=== PATIENT | female | born 1975 ===

== ENCOUNTER 2017-07-22 03:05 | Emergency (ER) | payer OTHER, SELFPAY ==
[2017-07-22 03:17] VITALS: RESP 16; O2SAT 98
--- NOTE | 2017-07-22 03:27 | ED PDOC ---
HPI: General Adult Time Seen by Provider: 07/22/17 03:19 Chief Complaint (Nursing): Fever Chief Complaint (Provider): fever History Per: Patient Additional Complaint(s): 41-year-old female presents to emergency department complaining of fever 3 days associated with headache, sore throat, bilateral ear pain and overall body aches. Patient has also has had chest pain since the fever started with no cough or shortness of breath. Patient has been taking Advil and TheraFlu but still does not feel well. Patient has had mild upper abd pain with nausea but no vomiting or diarrhea. Patient denies recent travel or known sick contacts. Patient states 2 days ago Tmax was 104. Patient also states she was treated recently for H pylori with 2 week course of antibiotics. Past Medical History Reviewed: Historical Data Vital Signs: Last Vital Signs Temp 97.6 F 07/22/17 06:50 Pulse 67 07/22/17 06:50 Resp 16 07/22/17 06:50 BP 113/67 07/22/17 06:50 Pulse Ox 98 07/22/17 06:50 - Medical History PMH: Anemia Other PMH: H pylori - Surgical History Surgical History: (x 2) - Family History Family History: States: No Known Family Hx - Living Arrangements Living Arrangements: With Family - Social History Current smoker - smoking cessation education provided: No Alcohol: None Drugs: Denies - Home Medications Home Medications: Ambulatory Orders Medication Instructions Recorded traMADol [Ultram] 50 mg PO Q6H PRN #15 tab 07/22/16 Albuterol HFA [Ventolin HFA 90 1 puff IH Q6 PRN #1 inhaler 07/22/17 mcg/actuation (8 g)] Levofloxacin [Levaquin] 500 mg PO DAILY #7 tablet 07/22/17 - Allergies Allergies/Adverse Reactions: Allergies Allergy/AdvReac Type Severity Reaction Status Date / Time FISH Allergy VOMITING Verified 07/21/16 22:06 Review of Systems ROS Statement: Except As Marked, All Systems Reviewed And Found Negative Constitutional: Positive for: Fever, Chills, Other (body aches) ENT: Positive for: Throat Pain Cardiovascular: Positive for: Chest Pain Respiratory: Negative for: Cough Gastrointestinal: Negative for: Nausea, Vomiting Genitourinary Female: Negative for: Dysuria Neurological: Positive for: Headache. Negative for: Dizziness Physical Exam - Reviewed Nursing Documentation Reviewed: Yes Vital Signs Reviewed: Yes - Physical Exam Appears: Positive for: Well, Non-toxic, No Acute Distress Skin: Negative for: Rash Eye Exam: Positive for: Normal appearance ENT: Positive for: TM Is/Are (normal bilaterally), Pharyngeal Erythema. Negative for: Nasal Congestion Neck: Positive for: Normal, Painless ROM Cardiovascular/Chest: Positive for: Regular Rate, Rhythm Respiratory: Positive for: Normal Breath Sounds. Negative for: Wheezing, Respiratory Distress Gastrointestinal/Abdominal: Positive for: Soft. Negative for: Tenderness, Distended, Guarding, Rebound Extremity: Positive for: Normal ROM Neurologic/Psych: Positive for: Alert, Oriented - Laboratory Results Result Diagrams: 07/22/17 04:15 07/22/17 04:15 Urine POC: Negative - ECG Interpretation Of ECG: NSR 79 bpm, no acute finding, reviewed by PA and ED attending O2 Sat by Pulse Oximetry: 98 Pulse Ox Interpretation: Normal - Other Rad CXR X-Ray: Viewed By Me, Read By Radiologist X-Ray Interpretation: Vrad read: probably RML PNA CT chest and abdomen with IV contrast X-Ray: Read By Radiologist X-Ray Interpretation: see below Medical Decision Making Medical Decision Makin41 year old with fever for the past 3 days. Patient is afebrile upon arrival. Plan: CBC Blood cultures CMP Lipase Trop Lactate UA Urine culture Rapid strep Flu swab Monospot IVF Patient states she feels slightly better after meds and IVF given. Patient aware of pneumonia finding on CXR. Upon reexamination patient has increasing epigastric and upper abdominal discomfort in the setting of elevated LFTs. Case was discussed with Dr. Quiros, CT chest and abdomen with IV contrast ordered. CT abdomen: FINDINGS: Liver: Unremarkable. No mass. Gallbladder and bile ducts : No calcified stones. No ductal dilation. Pancreas: No ductal dilation. No mass. Spleen: No splenomegaly. Adrenals: No mass. Kidneys and ureters: No mass. No hydronephrosis. Stomach and bowel: Fluid/loose stool within colon. No definite mural thickening. No obstruction. Appendix: No findings to suggest acute appendicitis. Intraperitoneal space: No significant fluid collection. No free air. Bones/joints: No acute fracture. Soft tissues: Unremarkable. Vasculature: Unremarkable. No aneurysm. Lymph nodes: No pathologically enlarged lymph nodes. IMPRESSION: 1. Fluid/loose stool within bowel may suggest diarrhea illness CT chest: No relevant prior studies available. FINDINGS: Lungs: Minimal atelectasis. Moderate patchy and confluent consolidation with air bronchograms within RIGHT middle lobe. Minimal patchy airspace disease within RIGHT lower lobe. Pleural space: No pneumothorax. No significant effusion. Heart: No cardiomegaly. No significant pericardial effusion. Bones/joints: No acute fracture. Soft tissues: Unremarkable. Vasculature: Unremarkable. No aneurysm. Lymph nodes: No pathologically enlarged lymph nodes. IMPRESSION: 1. Probable pneumonia. Followup to resolution to exclude underlying pathology. Patient aware of CT results, all questions answered. Patient advised to follow up with clinic for repeat LFT's in 2 weeks. Rx levaquin given. Advised tylenol and motrin alternating for fever and body aches, rest and fluids. Patient instructed to followup with clinic in 1-2 days and she is aware she can RTED at any time if acutely worse. Disposition - Clinical Impression Clinical Impression: Pneumonia, Elevated liver enzymes - Patient ED Disposition Is Patient to be Admitted: No Counseled Patient/Family Regarding: Studies Performed, Diagnosis, Need For Followup, Rx Given - Disposition Referrals: [facility] [Outside] Disposition: Routine/Home Disposition Time: 05:54 Condition: STABLE Additional Instructions: Alternate tylenol every 4 hrs and motrin every 6 hrs for fever and body aches. Drink plenty of fluids and get plenty of rest. Take rx meds as directed. Follow up with clinic in 1-2 days. Have liver function tests repeated in 2 weeks. Prescriptions: Albuterol HFA [Ventolin HFA 90 mcg/actuation (8 g)] 1 puff IH Q6 PRN #1 inhaler PRN Reason: Cough Levofloxacin [Levaquin] 500 mg PO DAILY #7 tablet Instructions: Community Acquired Pneumonia (ED) Forms: [employer] (Pashto), [employer] (Danish) Print Language: GIBRALTARIAN Results - Lab Results Lab Results: 07/22/17 07/22/17 07/22/17 05:30 04:15 04:15 WBC RBC Hgb Hct MCV MCH MCHC RDW Plt Count MPV Neut % (Auto) Lymph % (Auto) [place] % (Auto) Eos % (Auto) Baso % (Auto) Neut # Lymph # [place] # Eos # Baso # Sodium Potassium Chloride Carbon Dioxide Anion Gap BUN Creatinine Est GFR ( Amer) Est GFR (Non-Af Amer) Random Glucose Lactic Acid Calcium Total Bilirubin AST ALT Alkaline Phosphatase Troponin I Total Protein Albumin Globulin Albumin/Globulin Ratio Lipase Urine Color Colorless Urine Clarity Cloudy Urine pH 6.0 Ur Specific Weaver < 1.005 Urine Protein Negative Urine Glucose (UA) Neg Urine Ketones Negative Urine Blood Negative Urine Nitrate Negative Urine Bilirubin Negative Urine Urobilinogen 0.2-1.0 Ur Leukocyte Esterase Neg Urine RBC (Auto) 2 Urine Microscopic WBC 1 Ur Squamous Epith Cells 1 Urine Bacteria Occ H Hyaline Casts 0-2 Infectious [place] Assay Negative Influenza Typ A,B (EIA) Grp A Beta Strep Ag Negative 07/22/17 07/22/17 07/22/17 04:15 04:15 04:15 WBC RBC Hgb Hct MCV MCH MCHC RDW Plt Count MPV Neut % (Auto) Lymph % (Auto) [place] % (Auto) Eos % (Auto) Baso % (Auto) Neut # Lymph # [place] # Eos # Baso # Sodium 141 Potassium 4.3 Chloride 111 H Carbon Dioxide 20 L Anion Gap 14 BUN 10 Creatinine 0.5 L Est GFR ( Amer) > 60 Est GFR (Non-Af Amer) > 60 Random Glucose 90 Lactic Acid 0.5 L Calcium 8.0 L Total Bilirubin 0.2 AST 281 H ALT 342 H D Alkaline Phosphatase 256 H Troponin I < 0.0120 Total Protein 7.1 Albumin 3.8 Globulin 3.2 Albumin/Globulin Ratio 1.2 Lipase 102 Urine Color Urine Clarity Urine pH Ur Specific Weaver Urine Protein Urine Glucose (UA) Urine Ketones Urine Blood Urine Nitrate Urine Bilirubin Urine Urobilinogen Ur Leukocyte Esterase Urine RBC (Auto) Urine Microscopic WBC Ur Squamous Epith Cells Urine Bacteria Hyaline Casts Infectious [place] Assay Influenza Typ A,B (EIA) Negative for flu a/b Grp A Beta Strep Ag 07/22/17 04:15 WBC 5.8 RBC 3.73 L Hgb 9.6 L Hct 29.1 L MCV 78.0 L MCH 25.8 L MCHC 33.1 RDW 16.1 H Plt Count 138 MPV 9.0 Neut % (Auto) 60.7 Lymph % (Auto) 25.5 [place] % (Auto) 13.2 H Eos % (Auto) 0.2 Baso % (Auto) 0.4 Neut # 3.5 Lymph # 1.5 [place] # 0.8 Eos # 0.0 Baso # 0.0 Sodium Potassium Chloride Carbon Dioxide Anion Gap BUN Creatinine Est GFR ( Amer) Est GFR (Non-Af Amer) Random Glucose Lactic Acid Calcium Total Bilirubin AST ALT Alkaline Phosphatase Troponin I Total Protein Albumin Globulin Albumin/Globulin Ratio Lipase Urine Color Urine Clarity Urine pH Ur Specific Weaver Urine Protein Urine Glucose (UA) Urine Ketones Urine Blood Urine Nitrate Urine Bilirubin Urine Urobilinogen Ur Leukocyte Esterase Urine RBC (Auto) Urine Microscopic WBC Ur Squamous Epith Cells Urine Bacteria Hyaline Casts Infectious [place] Assay Influenza Typ A,B (EIA) Grp A Beta Strep Ag
[2017-07-22] MEDS ORDERED: Sodium Chloride 0.9% 1,000 ML IV STA ×2 (03:28→05:04)
[2017-07-22 04:23] LABS: BASO % 0.4 % (0.0-2.0); EOS % 0.2 % (0.0-4.0); HEMATOCRIT 29.1 % (34.0-47.0); LYMPH # 1.5 K/uL (1.0-4.3); LYMPH % 25.5 % (20.0-40.0); MEAN CORPUSCULAR HEMOGLOBIN 25.8 pg (27.0-31.0); MEAN CORPUSCULAR HGB CONC 33.1 g/dL (33.0-37.0); MONO # 0.8 K/uL (0.0-0.8); MONO % 13.2 % (0.0-10.0); NEUT # 3.5 K/uL (1.8-7.0); NEUT % 60.7 % (50.0-75.0); RED CELL DISTRIBUTION WIDTH 16.1 % (11.5-14.5); WHITE BLOOD COUNT 5.8 K/uL (4.8-10.8)
[2017-07-22 04:26] LABS: RBC URINE 2 /hpf (0-3); URINE BACTERIA OCC (<OCC); URINE BILIRUBIN NEGATIVE (NEGATIVE); URINE BLOOD NEGATIVE (NEGATIVE); URINE COLOR COLORLESS (YELLOW); URINE GLUCOSE (UA) NEG (Normal); URINE KETONE NEGATIVE (NEGATIVE); URINE LEUKOCYTE ESTERASE NEG Leu/uL (Negative); URINE PROTEIN NEGATIVE (NEGATIVE); URINE UROBILINOGEN 0.2-1.0 mg/dL (0.2-1.0); WBC URINE 1 /hpf (0-5)
--- NOTE | 2017-07-22 04:27 | RAD ---
EXAM: XR Chest, 2 Views CLINICAL HISTORY: 41 years old, female; Signs and symptoms; Fever TECHNIQUE: Frontal and lateral views of the chest. COMPARISON: CR - CHEST PA 02/18/2012 7:16:01 AM FINDINGS: Lungs: Patchy opacity RIGHT middle lobe. Pleural space: No pleural effusion. No pneumothorax. Heart: No cardiomegaly. Mediastinum: Unremarkable. Bones/joints: No acute fracture. IMPRESSION: 1. Probable RML pneumonia. Followup to resolution to exclude underlying pathology.
[2017-07-22 04:38] LABS: ALB/GLOB RATIO 1.2 (1.0-2.1); ALKALINE PHOSPHATASE 256 U/L (38-126); ALT/SGPT 342 U/L (9-52); AST/SGOT 281 U/L (14-36); BILIRUBIN,TOTAL 0.2 mg/dl (0.2-1.3); BLOOD UREA NITROGEN 10 mg/dl (7-17); CARBON DIOXIDE 20 mmol/L (22-30); CHLORIDE 111 mmol/L (98-107); GFR AFRICAN-AMERICAN > 60; GLUCOSE,RANDOM 90 mg/dL (65-105); LIPASE 102 U/L (23-300); POTASSIUM 4.3 MMOL/L (3.6-5.0); SODIUM 141 mmol/l (132-148); TOTAL PROTEIN 7.1 G/DL (6.3-8.2)
[2017-07-22] MEDS ORDERED: cefTRIAXone 2 GM in Sodium Chloride 0.9% 100 ML IVPB STA (04:58)
[2017-07-22] MEDS ORDERED: Sodium Chloride 0.9% 50 ML IV ONE (05:12)
[2017-07-22] MEDS ORDERED: Iohexol 300 100 ML IJ ONE (05:12)
--- NOTE | 2017-07-22 05:49 | CT ---
EXAM: CT Chest With Intravenous Contrast CLINICAL HISTORY: 41 years old, female; Abnormal findings; Abnormal radiologic finding of the abdomen; Radiologic exam and body structure: Chest; Abnormal radiologic exam of lung or chest; Prior surgery; Surgery date: 6+ months; Surgery type: ; Additional info: Assess for cholecystitis, pneumonia on cxr TECHNIQUE: Axial computed tomography images of the chest with intravenous contrast. All CT scans at this facility use one or more dose reduction techniques, viz.: automated exposure control; ma/kV adjustment per patient size (including targeted exams where dose is matched to indication; i.e. head); or iterative reconstruction technique. Coronal and sagittal reformatted images were created and reviewed. CONTRAST: 90 mL of [id number] administered intravenously. COMPARISON: No relevant prior studies available. FINDINGS: Lungs: Minimal atelectasis. Moderate patchy and confluent consolidation with air bronchograms within RIGHT middle lobe. Minimal patchy airspace disease within RIGHT lower lobe. Pleural space: No pneumothorax. No significant effusion. Heart: No cardiomegaly. No significant pericardial effusion. Bones/joints: No acute fracture. Soft tissues: Unremarkable. Vasculature: Unremarkable. No aneurysm. Lymph nodes: No pathologically enlarged lymph nodes. IMPRESSION: 1. Probable pneumonia. Followup to resolution to exclude underlying pathology. EXAM: CT Abdomen With Intravenous Contrast CLINICAL HISTORY: 41 years old, female; Abnormal findings; Abnormal radiologic finding of the abdomen; Radiologic exam and body structure: Chest; Abnormal radiologic exam of lung or chest; Prior surgery; Surgery date: 6+ months; Surgery type: ; Additional info: Assess for cholecystitis, pneumonia on cxr TECHNIQUE: Axial computed tomography images of the abdomen with intravenous contrast. All CT scans at this facility use one or more dose reduction techniques, viz.: automated exposure control; ma/kV adjustment per patient size (including targeted exams where dose is matched to indication; i.e. head); or iterative reconstruction technique. Coronal and sagittal reformatted images were created and reviewed. CONTRAST: 90 mL of administered intravenously. COMPARISON: US - ABDOMEN COMPLETE 11/06/2016 8:59:41 AM FINDINGS: Liver: Unremarkable. No mass. Gallbladder and bile ducts: No calcified stones. No ductal dilation. Pancreas: No ductal dilation. No mass. Spleen: No splenomegaly. Adrenals: No mass. Kidneys and ureters: No mass. No hydronephrosis. Stomach and bowel: Fluid/loose stool within colon. No definite mural thickening. No obstruction. Appendix: No findings to suggest acute appendicitis. Intraperitoneal space: No significant fluid collection. No free air. Bones/joints: No acute fracture. Soft tissues: Unremarkable. Vasculature: Unremarkable. No aneurysm. Lymph nodes: No pathologically enlarged lymph nodes. IMPRESSION: 1. Fluid/loose stool within bowel may suggest diarrhea illness.
[2017-07-22 06:51] VITALS: BP 113/67; PULSE 67; TEMP 97.6
--- NOTE | 2017-07-22 08:19 | CARD ---
APPROVED REPORT EKG Measurement Heart [id number] <Conclusion> Normal sinus rhythm Normal ECG
== END 2017-07-22 06:57 | disposition home or self-care (01) ==
LOC: H.ER 03:05
DX: R74.8 Abnormal levels of other serum enzymes (principal); J18.9 Pneumonia, unspecified organism; Z87.19 Personal history of other diseases of the digestive system
CPT/HCPCS: 71020; 71260; 74160; 80053; 81003; 81025; 83605; 83690; 84484; 85025; 86308; 87070; 87430; 87804; 93005; 96360; 99283; J0696; J1885; J7040; Q9967

== ENCOUNTER 2017-09-19 08:45 | Day surgery (SDC) | payer SELFPAY ==
[2017-09-19] MEDS ORDERED: Lactated Ringer's 1,000 ML IV ONE (09:42)
[2017-09-19] MEDS ORDERED: Propofol 10 mg/ml Inj (20 ML) ONE (10:29)
[2017-09-19] MEDS ORDERED: Lidocaine 2% MPF (5 ml) Inj ONE (10:30)
[2017-09-19 11:00] VITALS: TEMP 98
[2017-09-19 11:19] VITALS: BP 104/59; PULSE 71; RESP 20; O2SAT 100
== END 2017-09-19 11:42 | disposition home or self-care (01) ==
LOC: H.ENDO 08:45
PROVIDERS: ATTEND Internal Medicine Gastroenterology
DX: R19.7 Diarrhea, unspecified (principal); K64.0 First degree hemorrhoids; D12.0 Benign neoplasm of cecum; K20.9 Esophagitis, unspecified; K29.70 Gastritis, unspecified, without bleeding
CPT/HCPCS: 43239; 45380; 88305; J2704; J7120

== ENCOUNTER 2017-10-30 04:26 | Emergency (ER) | payer OTHER ==
[2017-10-30 04:57] VITALS: BP 128/63; PULSE 81; RESP 16; TEMP 98; O2SAT 98
--- NOTE | 2017-10-30 06:08 | ED PDOC ---
HPI: Abdomen Time Seen by Provider: 10/30/17 04:40 Chief Complaint (Nursing): Abdominal Pain Chief Complaint (Provider): Abdominal Pain History Per: Patient History/Exam Limitations: no limitations Onset/Duration Of Symptoms: Days (x1), Persistent Current Symptoms Are (Timing): Still Present Severity: Severe Location Of Pain/Discomfort: RUQ (modereate RUQ pain), RLQ (severe RLQ pain), Other (right flank pain - moderate) Quality Of Discomfort: "Pain" Associated Symptoms: Vomiting. denies: Fever, Diarrhea Additional Complaint(s): 41 year old female presents to ED with complaints of constant abdominal pain x1 day and has a past medical history of h. pylori gastritis. Notes severe pain to the epigastric, right sided, and right flank regions of the abdomen. Specifically notes that pain is worst in the RLQ. (+) nausea and vomiting. (-) fever or diarrhea. Patient notes that at time of onset, pain originated in the epigastric region. Denies taking any over the counter medications for pain. 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 worst in RLQ). Negative for: Diarrhea Physical Exam - Reviewed Nursing Documentation Reviewed: Yes Vital Signs Reviewed: Yes - Physical Exam Appears: Positive for: Non-toxic, Uncomfortable Skin: Positive for: Normal Color, Warm, Dry Eye Exam: Positive for: Normal appearance, EOMI, PERRL ENT: Positive for: Normal ENT Inspection Neck: Positive for: Normal, Painless ROM, Supple Cardiovascular/Chest: Positive for: Regular Rate, Rhythm. Negative for: Murmur Respiratory: Positive for: Normal Breath Sounds. Negative for: Respiratory Distress Gastrointestinal/Abdominal: Positive for: Soft, Tenderness (moderate tenderness to the RLQ. diffuse tenderness to RUQ/epigastric/suprapubic regions.). Negative for: Normal Exam Back: Positive for: R CVA Tenderness. Negative for: L CVA Tenderness Extremity: Positive for: Normal ROM. Negative for: Deformity Neurologic/Psych: Positive for: Alert, Oriented. Negative for: Motor/Sensory Deficits - Laboratory Results Result Diagrams: 10/30/17 06:30 10/30/17 06:30 - ECG O2 Sat by Pulse Oximetry: 98 (RA) Pulse Ox Interpretation: Normal Medical Decision Making Medical Decision Makin Initial impression: abdominal pain DDx: acute appendicitis, cholecystitis, renal stone Initial plan: * CTA A/P * Labs * Dilaudid 0.5mg IVP * Iohexol 50mL PO * Zofran Inj 4mg IVP * Re-eval Scribe Attestation: Documented by Denise Guillen acting as a scribe for Sharon Wood MD. Scribe Attestation: All medical record entries made by the Scribe were at my direction and personally dictated by me. I have reviewed the chart and agree that the record accurately reflects my personal performance of the history, physical exam, medical decision making, and the department course for this patient. I have also personally directed, reviewed, and agree with the discharge instructions and disposition. Disposition - Clinical Impression Clinical Impression: Enteritis, Abdominal pain - Patient ED Disposition Is Patient to be Admitted: Transfer of Care Counseled Patient/Family Regarding: Studies Performed, Diagnosis - Disposition Disposition: Transfer of Care Disposition Time: 07:00 Condition: STABLE Prescriptions: Ciprofloxacin HCl [Cipro] 500 mg PO BID #14 tab metroNIDAZOLE [Flagyl] 500 mg PO TID #21 tab Instructions: Enteritis (ED) Patient Signed Over To: Shital Burns
[2017-10-30] MEDS ORDERED: Iohexol 240 (50 ml) PO ONE (06:11)
[2017-10-30] MEDS ORDERED: HYDROmorphone 0.5 mg/0.5 ml ISec IVP STA (06:11)
[2017-10-30] MEDS ORDERED: Sodium Chloride 0.9% 1,000 ML IV STA (06:12)
[2017-10-30] MEDS ORDERED: HYDROmorphone 0.5 mg/0.5 ml ISec ONE (06:17)
[2017-10-30] MEDS ORDERED: Iohexol 240 (50 ml) ONE (07:05)
[2017-10-30 07:13] LABS: BASO % 0.5 % (0.0-2.0); EOS # 0.1 K/uL (0.0-0.7); EOS % 1.1 % (0.0-4.0); LYMPH # 1.9 K/uL (1.0-4.3); MEAN CELL VOLUME 77.6 fl (81.0-99.0); MEAN CORPUSCULAR HEMOGLOBIN 24.7 pg (27.0-31.0); MEAN CORPUSCULAR HGB CONC 31.8 g/dL (33.0-37.0); MEAN PLATELET VOLUME 8.4 fl (7.2-11.7); MONO # 0.6 K/uL (0.0-0.8); MONO % 7.9 % (0.0-10.0); NEUT # 5.1 K/uL (1.8-7.0); NEUT % 65.5 % (50.0-75.0); RBC 4.03 Mil/uL (3.80-5.20); RED CELL DISTRIBUTION WIDTH 15.9 % (11.5-14.5); WHITE BLOOD COUNT 7.8 K/uL (4.8-10.8)
[2017-10-30 07:14] LABS: ALB/GLOB RATIO 1.3 (1.0-2.1); ALBUMIN 4.2 g/dL (3.5-5.0); ALT/SGPT 36 U/L (9-52); AST/SGOT 28 U/L (14-36); BLOOD UREA NITROGEN 11 mg/dl (7-17); GFR AFRICAN-AMERICAN > 60; GFR NON-AFRICAN AMERICAN > 60
[2017-10-30] MEDS ORDERED: Iohexol 300 100 ML IJ ONE (09:00)
[2017-10-30] MEDS ORDERED: Sodium Chloride 0.9% 50 ML IV ONE (09:00)
--- NOTE | 2017-10-30 10:39 | CT ---
PROCEDURE: CT Abdomen and Pelvis with contrast HISTORY: abdominal pain COMPARISON: CT chest/ abdomen 07/22/2017 TECHNIQUE: Contrast dose: 100 cc Omnipaque 300 Radiation dose: Total exam DLP = 777.29 mGy-cm. This CT exam was performed using one or more of the following dose reduction techniques: Automated exposure control, adjustment of the mA and/or kV according to patient size, and/or use of iterative reconstruction technique. FINDINGS: LOWER THORAX: Dependent atelectasis both lower lobes LIVER: Unremarkable. No gross lesion or ductal dilatation. GALLBLADDER AND BILE DUCTS: Unremarkable. PANCREAS: Unremarkable. No gross lesion or ductal dilatation. SPLEEN: Unremarkable. ADRENALS: Unremarkable. No mass. KIDNEYS AND URETERS: Unremarkable. No hydronephrosis. No solid mass. VASCULATURE: Unremarkable. No aortic aneurysm. BOWEL: No evidence of bowel obstruction. There is circumferential mural thickening of loops of small bowel in the left side of the abdomen consistent with nonspecific enteritis. No other abnormal bowel loops are identified. APPENDIX: Normal appendix. PERITONEUM: Unremarkable. No free fluid. No free air. LYMPH NODES: Unremarkable. No enlarged lymph nodes. BLADDER: Unremarkable. REPRODUCTIVE: Unremarkable uterus. Incidental right Bartholin's gland cyst in the right labia majora, 2.4 cm greatest dimension. BONES: No acute fracture. OTHER FINDINGS: None. IMPRESSION: Circumferential mural thickening of loops of small bowel in the left abdomen consistent with nonspecific enteritis. Incidental right Bartholin's gland cyst. No other significant abnormality is identified.
--- NOTE | 2017-10-30 11:22 | ED PDOC ---
- Laboratory Results Result Diagrams: 10/30/17 06:30 10/30/17 06:30 - ECG O2 Sat by Pulse Oximetry: 98 (RA) Medical Decision Making Medical Decision Making: CT abd's major finding is enteritis in the area of pain. Patient otherwse okay. Tenderness, improved. Disposition Doctor Will See Patient In The: Office Counseled Patient/Family Regarding: Diagnosis, Need For Followup, Rx Given - Clinical Impression Clinical Impression: Enteritis - POA Present On Arrival: None - Disposition Disposition: Routine/Home Disposition Time: 11:18 Prescriptions: Ciprofloxacin HCl [Cipro] 500 mg PO BID #14 tab metroNIDAZOLE [Flagyl] 500 mg PO TID #21 tab Instructions: Enteritis (ED) Forms: [employer] (Upper Sorbian)
== END 2017-10-30 11:32 | disposition home or self-care (01) ==
LOC: H.ER 04:26
DX: K52.9 Noninfective gastroenteritis and colitis, unspecified (principal)
CPT/HCPCS: 74177; 80053; 81025; 85025; 96374; 96375; 99282; J1170; J2405; J7040; Q9966; Q9967

== ENCOUNTER 2018-02-27 08:58 | Emergency (ER) | payer OTHER ==
[2018-02-27 09:00] VITALS: BMI 26.4
[2018-02-27] MEDS ORDERED: Iohexol 240 (50 ml) PO ONE (09:22)
[2018-02-27] MEDS ORDERED: Sodium Chloride 0.9% 1,000 ML IV STA (09:22)
--- NOTE | 2018-02-27 09:25 | ED PDOC ---
HPI: Abdomen Time Seen by Provider: 02/27/18 09:08 Chief Complaint (Nursing): Abdominal Pain Chief Complaint (Provider): Abdominal pain History Per: Patient History/Exam Limitations: no limitations Onset/Duration Of Symptoms: Days Current Symptoms Are (Timing): Still Present Additional Complaint(s): Pt. with abd pain for 2 days. Left upper and lower pain. No dysuria. Has low back pain with the abd pain. No numbness, tingles, weakness. No incontinence. No constipation. No chest pain, dyspnea, fever, cough. No new food or drinks. 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] Ciprofloxacin HCl [Cipro] 500 mg PO BID #14 tab 10/30/17 metroNIDAZOLE [Flagyl] 500 mg PO TID #21 tab 10/30/17 Ibuprofen [Motrin] 600 mg PO TID 7 Days tab 02/27/18 - Allergies Allergies/Adverse Reactions: Allergies Allergy/AdvReac Type Severity Reaction Status Date / Time shellfish derived Allergy RASH Verified 02/27/18 09:13 Review of Systems ROS Statement: Except As Marked, All Systems Reviewed And Found Negative Gastrointestinal: Positive for: Abdominal Pain Musculoskeletal: Positive for: Back Pain Physical Exam - Reviewed Nursing Documentation Reviewed: Yes Vital Signs Reviewed: Yes - Physical Exam Appears: Positive for: Non-toxic, No Acute Distress Head Exam: Positive for: ATRAUMATIC, NORMAL INSPECTION, NORMOCEPHALIC Skin: Positive for: Normal Color, Warm, DRY Eye Exam: Positive for: EOMI, Normal appearance, PERRL ENT: Positive for: Normal ENT Inspection Neck: Positive for: Normal, Painless ROM Cardiovascular/Chest: Positive for: Regular Rate, Rhythm Respiratory: Positive for: CNT, Normal Breath Sounds Gastrointestinal/Abdominal: Positive for: Soft, Tenderness (left upper and lower ). Negative for: Distended, Guarding Back: Positive for: Normal Inspection. Negative for: L CVA Tenderness, R CVA Tenderness Extremity: Positive for: Normal ROM. Negative for: Tenderness, Pedal Edema Neurologic/Psych: Positive for: Alert, Oriented - Laboratory Results Result Diagrams: 02/27/18 10:34 02/27/18 10:34 Interpretation Of Abn Labs: no acute - ECG O2 Sat by Pulse Oximetry: 98 Pulse Ox Interpretation: Normal - Progress ED Course And Treament: CT: epiploeic appendigitis 1416: Stable. AAOx3. Pain free. Tolerates po. Fu with pcp. Disposition - Clinical Impression Clinical Impression: Epiploic appendagitis - Patient ED Disposition Is Patient to be Admitted: No Counseled Patient/Family Regarding: Studies Performed, Diagnosis, Need For Followup, Rx Given - Disposition [facility]errals: [facility] - 02/28/18 Disposition: Routine/Home Disposition Time: 14:22 Condition: STABLE Additional Instructions: Return if not better in 3 days. Prescriptions: Ibuprofen [Motrin] 600 mg PO TID 7 Days tab Instructions: Acute Abdomen (Belly Pain) Print Language: UKRAINIAN
[2018-02-27] MEDS ORDERED: Famotidine 20mg/50ml Premix IVPB ONE (09:30)
[2018-02-27] MEDS ORDERED: Barium Sulfate Susp 2.1% w/v, 2.0% w/w 450 mL Bottle PO ONE ×3 (10:00→12:00)
[2018-02-27 10:58] LABS: BASO % 0.7 % (0.0-2.0); EOS % 0.8 % (0.0-4.0); HEMOGLOBIN 10.8 g/dL (12.0-16.0); LYMPH # 1.5 K/uL (1.0-4.3); LYMPH % 27.6 % (20.0-40.0); MEAN CELL VOLUME 77.2 fl (81.0-99.0); MEAN CORPUSCULAR HEMOGLOBIN 25.4 pg (27.0-31.0); MEAN CORPUSCULAR HGB CONC 32.9 g/dL (33.0-37.0); MONO # 0.4 K/uL (0.0-0.8); MONO % 8.2 % (0.0-10.0); NEUT # 3.4 K/uL (1.8-7.0); NEUT % 62.7 % (50.0-75.0); RBC 4.25 Mil/uL (3.80-5.20); RED CELL DISTRIBUTION WIDTH 17.1 % (11.5-14.5); WHITE BLOOD COUNT 5.4 K/uL (4.8-10.8)
[2018-02-27 10:59] LABS: ALB/GLOB RATIO 1.2 (1.0-2.1); ALBUMIN 4.2 g/dL (3.5-5.0); ALT/SGPT 31 U/L (9-52); AST/SGOT 35 U/L (14-36); BLOOD UREA NITROGEN 8 mg/dl (7-17); CALCIUM 8.9 mg/dL (8.4-10.2); GFR AFRICAN-AMERICAN > 60; GFR NON-AFRICAN AMERICAN > 60; LIPASE 57 U/L (23-300)
[2018-02-27] MEDS ORDERED: Famotidine 20mg/50ml 20 MG/50 ML BAG IVPB ONE (11:08)
[2018-02-27] MEDS ORDERED: Sodium Chloride 0.9% 100 ML ONE (12:00)
[2018-02-27] MEDS ORDERED: Iohexol 300 100 ML IJ ONE (12:00)
--- NOTE | 2018-02-27 12:48 | CT ---
PROCEDURE: CT Abdomen and Pelvis with contrast HISTORY: abd pain COMPARISON: CT scan the abdomen pelvis dated 10/30/2017 TECHNIQUE: Contrast dose: 95 mL Omnipaque 300 Radiation dose: Total exam DLP = 393.8 mGy-cm. This CT exam was performed using one or more of the following dose reduction techniques: Automated exposure control, adjustment of the mA and/or kV according to patient size, and/or use of iterative reconstruction technique. FINDINGS: LOWER THORAX: Unremarkable. LIVER: Hepatic steatosis. No gross lesion or ductal dilatation. GALLBLADDER AND BILE DUCTS: Unremarkable. PANCREAS: Unremarkable. No gross lesion or ductal dilatation. SPLEEN: Unremarkable. ADRENALS: Unremarkable. No mass. KIDNEYS AND URETERS: Unremarkable. No hydronephrosis. No solid mass. VASCULATURE: Unremarkable. No aortic aneurysm. BOWEL: Unremarkable. No obstruction. No gross mural thickening. APPENDIX: Normal appendix. PERITONEUM: Ovoid fat density structure with thin hyperdense rim anterior to the distal descending colon in the left lower quadrant (series 3, image 118). No free fluid. No free air. LYMPH NODES: Unremarkable. No enlarged lymph nodes. BLADDER: Unremarkable. REPRODUCTIVE: Involuting left corpus luteal follicle. BONES: No acute fracture. OTHER FINDINGS: None. IMPRESSION: Left lower quadrant epiploic appendagitis. Involuting left corpus luteal follicle.
[2018-02-27 15:03] VITALS: BP 110/63; PULSE 68; RESP 17; TEMP 98.5; O2SAT 100
== END 2018-02-27 15:01 | disposition home or self-care (01) ==
LOC: H.ER 08:58
DX: K65.9 Peritonitis, unspecified (principal)
CPT/HCPCS: 74177; 80053; 81025; 83690; 85025; 96361; 96365; 96375; 99283; J1885; J7040; Q9967

== ENCOUNTER 2019-02-18 17:31 | Emergency (ER) | payer SELFPAY ==
[2019-02-18 17:31] VITALS: BMI 26.4
[2019-02-18 17:41] VITALS: RESP 18; TEMP 98.4; O2SAT 100
--- NOTE | 2019-02-18 18:29 | ED PDOC ---
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 Patient reports the pain is radiating to her neck and worsen s when breathing. Patient denies recent travel and any history of PE/dvt/ cardiac hisotry or any further medical complaints. PCP: [facility] - Risk Factors PE Risk Factors: Neg: Extremity Immobilization/Fx, Decreased Mobilty /Activity, Recent Major Surgery, Recent Hospitalization, Active Cancer, Previous DVT, Previous PE, CHF, Venous Stasis, Estrogen Usage, , Post-, Recent Major Trauma Past Medical History Reviewed: Historical Data, Nursing Documentation, Vital Signs Vital Signs: Last Vital Signs Temp 98.4 F 02/18/19 17:40 Pulse 86 02/18/19 17:40 Resp 18 02/18/19 17:40 BP 117/71 02/18/19 17:40 Pulse Ox 100 02/18/19 17:40 Primary Care Provider: FAMILY PROVIDER,NO - Medical History PMH: Anemia, Gastritis - Surgical History Surgical History: (x 2) - Family History Family History: States: Unknown Family Hx - Social History Current smoker - smoking cessation education provided: No Alcohol: None Drugs: Denies - Home Medications Home Medications: Ambulatory Orders Medication Instructions Recorded Ranitidine HCl [Sunmark Acid 150 mg PO DAILY 09/19/17 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] Ciprofloxacin HCl [Cipro] 500 mg PO BID #14 tab 10/30/17 metroNIDAZOLE [Flagyl] 500 mg PO TID #21 tab 10/30/17 Ibuprofen [Motrin] 600 mg PO TID 7 Days tab 02/27/18 - Allergies Allergies/Adverse Reactions: Allergies Allergy/AdvReac Type Severity Reaction Status Date / Time shellfish derived Allergy RASH Verified 02/27/18 09:13 JUNIOR Risk Score for UA/NSTEMI - JUNIOR Risk Score Age > 64: NO 3 or more CAD Risk Factors: NO Known CAD (Stenosis greater than 50%): NO Aspirin use in past 7 days: NO Severe Angina: NO EKG ST changes greater than 0.5mm: NO Positive Cardiac Marker: NO JUNIOR Score: 0 Risk %: 5% Wells Criteria for PE - Wells Criteria for Pulmonary Embolism Clinical Signs and Symptoms of DVT: No P.E is #1 Diagnosis, or Equally Likely: No Heart Rate >100: No Immobilization at least 3 days;Surgery previous 4 weeks: No Previous, objectively diagnosed PE or DVT: No Hemoptysis: No Malignancy w/treatment within 6 months, or palliative: No Total Score: 0 Review of Systems ROS Statement: Except As Marked, All Systems Reviewed And Found Negative Cardiovascular: Positive for: Chest Pain (right-sided; pleuritic) Respiratory: Positive for: Cough (dry) Musculoskeletal: Positive for: Neck Pain. Negative for: Leg Pain Physical Exam - Reviewed Nursing Documentation Reviewed: Yes Vital Signs Reviewed: Yes - Physical Exam Appears: Positive for: No Acute Distress Head Exam: Positive for: ATRAUMATIC, NORMAL INSPECTION, NORMOCEPHALIC Skin: Positive for: Normal Color, Warm, DRY Eye Exam: Positive for: EOMI, Normal appearance, PERRL ENT: Positive for: Normal ENT Inspection Neck: Positive for: Normal, Painless ROM, Supple Cardiovascular/Chest: Positive for: Regular Rate, Rhythm, Other (reproduceable right chest wall tenderness). Negative for: Murmur Respiratory: Positive for: Normal Breath Sounds. Negative for: Respiratory Distress Gastrointestinal/Abdominal: Positive for: Normal Exam, Soft. Negative for: Tenderness Back: Positive for: Normal Inspection. Negative for: L CVA Tenderness, R CVA Tenderness Extremity: Positive for: Normal ROM. 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 Negative f or: Facial Droop - Laboratory Results Result Diagrams: 02/18/19 18:32 02/18/19 19:55 - ECG ECG Rhythm: Positive for: Sinus Rhythm Rate: 78 O2 Sat by Pulse Oximetry: 100 (RA) Pulse Ox Interpretation: Normal Medical Decision Making Medical Decision Making: Time: 1817 Impression: r chest wall pain r/o musculoskeletal versus cardiac etiology - less likely cardiac as pt without cardiac risk factors Plan: EKG CMP Troponin I CBC Toradol 15 mg IVP Time: 1900 pt not tachycardic, tachypneic, no signs of resp distress Patient to be endorsed from provider to Kareem Higgins MD. Pending workup/reeval. - Scribe Attestation: Documented by Terry Lawson, acting as a scribe for Rukhsana Gilmore MD Provider Scribe Attestation: All medical record entries made by the Scribe were at my direction and personally dictated by me. I have reviewed the chart and agree that the record accurately reflects my personal performance of the history, physical exam, medical decision making, and the department course for this patient. I have also personally directed, reviewed, and agree with the discharge instructions and disposition. Disposition - Clinical Impression Clinical Impression: Atypical chest pain, Chest wall pain - Patient ED Disposition Is Patient to be Admitted: Transfer of Care Discussed With Dr.: Kareem Higgins - Disposition Referrals: Josh Person MD [Family Provider] - Disposition: Transfer of Care Disposition Time: 19:00 Condition: IMPROVED Instructions: Chest Pain That Is Not Caused by the Heart (DC) Forms: [employer] (Paraguayan) Print Language: ITALIAN
--- NOTE | 2019-02-18 19:11 | ED PDOC ---
- Laboratory Results Result Diagrams: 02/18/19 18:32 02/18/19 19:55 - ECG O2 Sat by Pulse Oximetry: 100 (RA) Pulse Ox Interpretation: Normal Medical Decision Making Medical Decision Making: Time: 1899 Patient endorsed to provider from Rukhsana Gilmore MD. Pending workup. Time: 2099 Certified range aide used EDJenna Radha Clay --Explained results patient, states she's feeling much improved --Strongly encouraged followup with PMD --Very well appearing with stable vitals upon discharge. Scribe Attestation: Documented by Terry Lawson, acting as a scribe for Kareem Higgins MD. Provider Scribe Attestation: All medical record entries made by the Scribe were at my direction and personally dictated by me. I have reviewed the chart and agree that the record accurately reflects my personal performance of the history, physical exam, me dical decision making, and the department course for this patient. I have also personally directed, reviewed, and agree with the discharge instructions and disposition. Disposition - Clinical Impression Clinical Impression: Atypical chest pain - POA Present On Arrival: None - Disposition Referrals: Josh Person MD [Family Provider] - Disposition: Routine/Home Disposition Time: 21:00 Condition: IMPROVED Instructions: Chest Pain That Is Not Caused by the Heart (DC) Forms: [employer] (Kyrgyz) Print Language: HONDURAN
[2019-02-18 19:26] LABS: BASO % 0.5 % (0.0-2.0); EOS # 0.1 K/uL (0.0-0.7); EOS % 0.8 % (0.0-4.0); HEMOGLOBIN 10.2 g/dL (12.0-16.0); LYMPH # 2.1 K/uL (1.0-4.3); LYMPH % 30.7 % (20.0-40.0); MEAN CELL VOLUME 78.9 fl (81.0-99.0); MEAN CORPUSCULAR HEMOGLOBIN 25.4 pg (27.0-31.0); MEAN CORPUSCULAR HGB CONC 32.2 g/dL (33.0-37.0); MEAN PLATELET VOLUME 8.9 fl (7.2-11.7); MONO # 0.7 K/uL (0.0-0.8); NRBC % 0.1 % (0.0-0.0); RED CELL DISTRIBUTION WIDTH 17.6 % (11.5-14.5); WHITE BLOOD COUNT 6.9 K/uL (4.8-10.8)
[2019-02-18 19:31] LABS: ALB/GLOB RATIO 1.4 (1.0-2.1); ALBUMIN 4.2 g/dL (3.5-5.0); ALT/SGPT 34 U/L (9-52); AST/SGOT 35 U/L (14-36); BLOOD UREA NITROGEN 14 mg/dl (7-17); CALCIUM 8.3 mg/dL (8.4-10.2); GFR NON-AFRICAN AMERICAN > 60
[2019-02-18 19:34] VITALS: BP 98/61
--- NOTE | 2019-02-19 09:49 | CARD ---
APPROVED REPORT Date of service: 02/18/2019 EKG Measurement Heart [id number] <Conclusion> Normal sinus rhythm Normal ECG
--- NOTE | 2019-02-19 11:00 | RAD ---
Date of service: 02/18/2019 HISTORY: Chest pain COMPARISON: 07/22/2017. TECHNIQUE: Chest PA and lateral views FINDINGS: LUNGS: No active pulmonary disease. PLEURA: No significant pleural effusion identified. No pneumothorax apparent. CARDIOVASCULAR: No aortic atherosclerotic calcification present. Normal cardiac size. No pulmonary vascular congestion. OSSEOUS STRUCTURES: No significant abnormalities. VISUALIZED UPPER ABDOMEN: Normal. OTHER FINDINGS: None. IMPRESSION: No active disease. Resolution of previously identified right middle lobe infiltrate.
[2019-02-19 16:01] VITALS: PULSE 78
== END 2019-02-18 21:49 | disposition home or self-care (01) ==
LOC: H.ER 17:31
DX: R07.89 Other chest pain (principal)
CPT/HCPCS: 71046; 80053; 81025; 84484; 85025; 93005; 96374; 99285; J1885